=== PATIENT | female | born 2005 | race Two or more races ===

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

== ENCOUNTER 2024-01-02 11:55 | Outpatient (CLI) | payer BC | END 2024-01-02 11:56 | disposition home or self-care (01) | LOC: ULT 11:55 | DX: R22.1 Localized swelling, mass and lump, neck (principal) | CPT/HCPCS: 76536 ==